=== PATIENT | female | born 2000 | race Hispanic/Latino ===

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

== ENCOUNTER 2019-10-28 05:32 | Inpatient (IN) | payer MEDICAID ==
[~2019-10-28] VITALS: Ht 157.5 cm; Wt 70.3 kg
[~2019-10-28 05:32] MED LIST changes: +BLOOD PRESSURE MED PO; +PNV71COM PO
[2019-10-28] MEDS ORDERED: LACTATED RINGERS 1000ML 1,000 ML IV PRN (05:35)
[2019-10-28] MEDS ORDERED: PROMETHAZINE HCL 25 MG/ML 1ML AMPULE IM PRN (05:45)
[2019-10-28] MEDS ORDERED: MEPERIDINE-PF 50 MG/ML SYG IVP PRN (05:45)
[2019-10-28] MEDS ORDERED: LACTATED RINGERS 500 ML 500 ML IV PRN (05:45)
[2019-10-28] MEDS ORDERED: EPHEDRINE SULFATE 50 MG/ML AMPULE IVP PRN (05:45)
[2019-10-28] MEDS ORDERED: ROPIVACAINE 0.2% 100ML VIAL 100 ML EP SCH (05:45)
[2019-10-28] MEDS ORDERED: NALOXONE HCL 0.4 MG/1 ML ML IV PRN (05:45)
[2019-10-28] MEDS ORDERED: FERR-82 PO (05:55)
[2019-10-28 06:21] LABS: APPEARANCE,URINE Cloudy (CLEAR); BILIRUBIN,URINE Negative (NEGATIVE); COLOR,URINE Dark Yellow (YELLOW); GLUCOSE, URINE (UA) Negative (NEGATIVE); KETONES,URINE Trace mg/dL (NEGATIVE); LEUKOCYTE ESTERASE ,URINE Moderate (NEGATIVE); NITRATE,URINE Negative (NEGATIVE); OCCULT BLOOD,URINE Negative (NEGATIVE); PROTEIN,URINE POS 1+ mg/dL (NEGATIVE)
[2019-10-28] MEDS ORDERED: OXYTOCIN-LR 20 UNITS/1000 ML 1,000 ML IV ONE ×2 (06:25→15:59)
[2019-10-28] MEDS ORDERED: OXYTOCIN 10 USP UNITS/ML 20 UNIT in LACTATED RINGERS 1000ML 1,000 ML IV SCH (06:30)
[2019-10-28 06:40] VITALS: BP 116/83
[2019-10-28 06:48] LABS: BACTERIA,URINE Few /HPF (None Seen); MUCUS,URINE Moderate LPF (None Seen); RBC,URINE 0-1 /HPF (0-1); SQUAMOUS EPITHELIAL CELL,UR Few /HPF (0-2)
[2019-10-28 06:48] LABS: HEMATOCRIT 32.5 % (36-48); MEAN CORPUSCULAR HEMOGLOBIN 20.7 pg (27.0-33.0); MEAN CORPUSCULAR HGB CONC 30.8 g/dL (32.0-36.0); MEAN CORPUSCULAR VOLUME 67.4 fL (80-100); PLATELET COUNT (AUTO) 318 K/uL (130-400); RED BLOOD CELL COUNT(AUTO) 4.82 MIL/uL (4.00-5.50); RED CELL DISTRIBUTION WIDTH 16.4 % (11.0-15.5); WHITE BLOOD COUNT (AUTO) 8.9 K/uL (4.8-10.8)
[2019-10-28] MEDS ORDERED: FENTANYL CITRATE PF 50 MCG/1 ML 2ML VIAL ONE (08:16)
[2019-10-28 12:45] LABS: RAPID PLASMA REAGIN NONREACTIVE (NONREACTIVE)
[2019-10-28] MEDS ORDERED: DIPH,PERTUSS(ACELL),TET VAC/PF 0.5 ML VIAL IM PRN (15:45)
[2019-10-28] MEDS ORDERED: WITCH HAZEL 1 PAD TP PRN (15:45)
[2019-10-28] MEDS ORDERED: BENZOCAINE/LANOLIN/ALOE VERA 60 ML AEROSOL TP PRN (15:45)
[2019-10-28] MEDS ORDERED: LANOLIN 30GM OINTMENT TP PRN (15:45)
[2019-10-28] MEDS ORDERED: ACETAMINOPHEN 325 MG TAB PO PRN (15:45)
[2019-10-28] MEDS ORDERED: ACETAMINOPHEN-CODEINE 300/30MG TAB PO PRN (15:45)
[2019-10-28] MEDS ORDERED: IBUPROFEN 600 MG TABLET PO PRN (15:45)
[2019-10-28] MEDS ORDERED: MEASLES/MUMPS/RUBELLA VACCINE, LIVE 0.5 ML/VIAL SQ PRN (15:45)
[2019-10-28 17:15] VITALS: BP 119/75
[2019-10-28 19:37] VITALS: BP 123/79
[2019-10-28] MEDS: DOCUSATE SODIUM 100 MG CAP PO SCH (22:22)
[2019-10-28 23:32] VITALS: BP 120/78
[2019-10-29 03:38] VITALS: BP 99/54
[2019-10-29 07:17] LABS: HEPATITIS Bs ANTIGEN SCREEN P Negative (Negative)
[2019-10-29 07:34] VITALS: BP 102/66
[2019-10-29] MEDS: DOCUSATE SODIUM 100 MG CAP PO SCH (09:21)
[2019-10-29 12:02] VITALS: BP 128/62
--- NOTE | 2019-10-29 17:45 | NUR ---
PATIENT LEFT UNIT VIA WHEELCHAIR WITH BABY IN ARMS. PERSONAL VEHICLE USED FOR TRANSPORTATION ACCOMPANIED BY FAMILY, BABY SECURE IN CARSEAT. NO COMPLAINTS OR CONCERNS ADDRESSED FROM PATIENT ON DISCHARGE.
== END 2019-10-29 17:45 | disposition home or self-care (01) | DRG 560 ==
LOC: LDH 05:32 → WSH 17:10
PROVIDERS: ADMIT Specialist; ATTEND Specialist
PROC: 10E0XZZ Delivery of Products of Conception, External Approach (ICD-10-PCS; principal; 2019-10-28)
PROC: 0UQMXZZ Repair Vulva, External Approach (ICD-10-PCS; 2019-10-28)
PROC: 3E0R3BZ Introduction of Anesthetic Agent into Spinal Canal, Percutaneous Approach (ICD-10-PCS; 2019-10-28)
PROC: 00HU33Z Insertion of Infusion Device into Spinal Canal, Percutaneous Approach (ICD-10-PCS; 2019-10-28)
PROC: 3E0234Z Introduction of Serum, Toxoid and Vaccine into Muscle, Percutaneous Approach (ICD-10-PCS; 2019-10-29)
DX: O69.1XX0 Labor and delivery complicated by cord around neck, with compression, not applicable or unspecified (principal); Z3A.39 39 weeks gestation of pregnancy; Z37.0 Single live birth; Z23 Encounter for immunization; O71.82 Other specified trauma to perineum and vulva
CPT/HCPCS: 36415; 81001; 85027; 86592; 86701; 86850; 86900; 86901; 87088; 87340; 87390; 90715; A4314; G0378; J2590; J2795; J3010; J7120